=== PATIENT | female | born 2000 | race Caucasian/White ===

== ENCOUNTER 2023-06-03 02:14 | Day surgery (SDC) | payer BC, SELFPAY ==
[2023-05-31 10:49] VITALS: BMI 22.7
--- NOTE | 2023-05-31 10:52 | PC.NURSE ---
Report to the Outpatient Waiting Room, entrance under the green pavilion located off [facility], at time 0730 on date 06/03/23. Planned Procedure Time: 0930. Time changes happen often and if your time is changed the preop area will call you the afternoon before. - You and your visitor will be asked to self-screen and do not enter if you have any COVID symptoms. - A mask is optional within the hospital at this time. Patients may have clear liquids (water, carbonated beverages, clear teas, apple juice) until 3 hours prior to surgery with a maximum of 20 ounces. - No food from midnight until time of surgery Take the following medications with a SIP of water the morning of surgery: VALACYCLOVIR DO NOT STOP ANY OF YOUR OTHER PRESCRIPTION MEDICATIONS PRIOR TO SURGERY ?EXCEPT THE FOLLOWING Medications to discontinue per physician: N/A Date to take last dose: N/A Please no make-up, nail malagasy, hairspray, perfume, deodorant, or body powder the day of surgery. No jewelry (including any body piercings) or valuables the day of surgery, leave them at home. Please take a shower or bath the night before, or the morning of, surgery with an antibacterial soap. Wear comfortable, loose fitting clothing. - Jewelry must be removed prior to entering the operating room. Rings and piercings that are not removed may be cut off. - The hospital will not accept responsibility for valuables. - Please leave all valuables, including medications, at home the day of surgery. If you are going home after surgery, a licensed transport driver must drive you home. - NO public transportation without another adult if you receive anesthesia. - We recommend that an adult stay with you for 24 hours following discharge. - We also recommend that you do not drive, make important decision, drink alcoholic beverages, or take any drugs that were not prescribed by your health care provider for at least 24 hours after your discharge time. Follow any additional instructions given to you from your surgeon. If you or anyone in your household have experienced Covid symptoms in the past week, please notify your surgeon or the nurse liaison at the phone number below for possible testing. Telephone instructions given to PT - MARQUEZ and asked if any additional questions and then verbalized understanding. Patient advised to call surgeon office or pre surgery nurse liaison [phone] if any additional questions.
--- NOTE | 2023-06-01 06:43 | PM.IMHP ---
H&P: HPI History of Present Illness Date/Time: 06/01/23 06:43 Chief Complaint: 1st trimester missed A/B Narrative: 22-year-old 0 admitted in the 1st trimester for suction dilatation curettage secondary to failed . Serial ultrasounds show no growth of the fetus. Risks and benefits of suction D and C reviewed in great detail [facility] Social History Social History Smoking status: Never smoker Alcohol intake: never Substance use: never Substance use type: does not use Living arrangements: alone Spiritual care concerns: No Meds Home Medications and Allergies Home Medications Medication Instructions Recorded Confirmed Type valacyclovir 500 mg tablet 500 mg PO DAILY 05/31/23 05/31/23 History Allergies Allergy/AdvReac Type Severity Reaction Status Date / Time amoxicillin Allergy Hives Verified 05/31/23 10:49 Exam Const: General: cooperative, healthy appearing and comfortable Nutritional Appearance: average body habitus Orientation/consciousness: oriented to person, oriented to place and oriented to time Resp: Effort & Inspection: normal respiratory effort Cardio: Rate: regular rate Rhythm: regular rhythm Heart sounds: S1 normal heart sound present and S2 normal heart sound present GI: Inspection: normal to inspection : External Female Exam: normal external appearance Speculum Exam - Vagina: normal appearance of the vagina Speculum Exam - Cervix: normal appearance of the cervix Bimanual exam- vagina & uterus: enlarged Bimanual Exam- Adnexa, other: normal adnexae Assessment and Plan Assessment and plan (1) Missed : Code(s): O02.1 - Missed Status: Acute Plan suction dilatation and curettage
--- NOTE | 2023-06-03 04:43 | WPDHPUPDATE1 ---
History and Physical Update Update Date/Time: 06/03/23 04:43 History and Physical has been reviewed, including an updated exam of the patient. There are NO changes in the patient's condition. Risks, benefits, and alternatives have been discussed and questions answered. Patient agrees to proceed with procedure.
[2023-06-03 07:48] VITALS: BP 102/64; PULSE 89; RESP 16; TEMP 36.9; O2SAT 100
[2023-06-03] MEDS: ACETAMINOPHEN 500 MG TABLET 1000 MG PO (07:53)
[2023-06-03] MEDS: LACTATED RINGERS 1,000 ML 30 ML IV CONT ×2 (08:15→10:43)
[2023-06-03 09:02] LABS: Hematocrit 35.1 % (37.0-47.0); Hemoglobin 11.6 g/dL (12.0-15.0)
--- NOTE | 2023-06-03 09:26 | WPDANESEPPF ---
Anes - Initial Pre Proc Eval Procedure: Operation Date: 06/03/23 09:30 Proposed Procedures p Suction Dilation and Curettage - Mark Ordonez MD Date/Time: 06/03/23 09:26 Surgeon: Mark Ordonez MD Pre Op Diagnosis: Missed Ab Patient Data Age: 22 Gender: F Height: 1.7 m Weight: 64.6 kg Last Vital Signs Temp 98.4 F 06/03/23 07:48 Pulse 89 06/03/23 07:48 Resp 16 06/03/23 07:48 BP 102/64 06/03/23 07:48 Pulse Ox 100 06/03/23 07:48 O2 Del Method Room Air 06/03/23 07:48 Allergies Allergy/AdvReac Type Severity Reaction Status Date / Time amoxicillin Allergy Hives Verified 06/03/23 07:41 Home Medications Medication Instructions Recorded Confirmed Type valacyclovir 500 mg tablet 500 mg PO DAILY 05/31/23 05/31/23 History hydrocodone 5 mg-acetaminophen 325 1 tablet PO Q4H PRN pain #20 tabs 06/03/23 Rx mg tablet Laboratory Tests 06/03/23 08:11 Hgb 11.6 L g/dL (12.0-15.0) Hct 35.1 L % (37.0-47.0) Blood Type O Positive Antibody Screen Negative Doses of RhIg Required 0 Patient hx anesthesia problems: none Family hx anesthesia problems: none Results Review: All pre-operative results and documents have been reviewed as part of the pre-operative evaluation. [facility] Social History Social History Smoking status: Never smoker Alcohol intake: never Substance use: never Substance use type: does not use Living arrangements: alone Spiritual care concerns: No Anes - Eval Final PreProcedure Day of Procedure 06/03/23 09:26 Patient weight: normal Heart: regular rate and rhythm Lungs: clear to auscultation Airway: Mallampati scale class II Neurological: alert and oriented Last oral intake: >/= 8 hours ASA classification: I Emergent: no Anesthetic plan: proceed Anesthesia type and monitoring: general GIVS and standard monitoring Results Review: All pre-operative results and documents have been reviewed as part of the pre-operative evaluation. Informed Consent: The patient's anesthetic plan and its attendant risks and benefits were discussed with the patient/family/POA. Questions were solicited and answers provided to the satisfaction of the patient/family/POA.
[2023-06-03] MEDS: LIDOCAINE HCL 1% LOCAL INJ 20 ML VIAL 10 ML INFILTRATE (10:17)
[2023-06-03 10:20] VITALS: BP 83/47; PULSE 75; RESP 16; O2SAT 100
--- NOTE | 2023-06-03 10:26 | W.PM.PROC2 ---
Procedure Note - Detailed Date of Procedure 06/03/23 Pre-op Diagnosis Missed Ab Post-op Diagnosis Same Procedure Performed Suction dilatation curettage Surgeon Mark Ordonez MD Anesthesia MAC and Local Indications 22 female a missed 1st trimester Findings uterus retroverted sounded to 10. Products conception were. Description of Procedure Patient was prepped draped in the normal sterile fashion placed in the dorsal lithotomy position. Under excellent IV sedation weighted speculum was placed in the posterior fornix of vagina. Anterior lip of the cervix grasped with a single-tooth tenaculum. 2.5cc 1% xylocaine anesthesia placed at 2, 4, 8, and 10:00 a.m. of the cervix. Uterus was retroverted and sounded to 10cm. Serial dilatation with fragmented dilators performed. This was followed by passage of the 10. Cured suction curette. Moderate amount of tissue was removed. When a good grating sound was heard the instrument withdrawn. The the weighted speculum was and the patient was awakened. Blood loss was estimated 50cc. All sponge, needle, instrument counts were correct. She did not require RhoGAM as she is Rh positive Estimated Blood Loss 50 Drains No Packing No Pathology Yes Complications No immediate complications Condition Stable Disposition PACU
--- NOTE | 2023-06-03 10:49 | SUR.PHASEII ---
PATIENT CRYING; FAMILY NEXT TO HER, COMFORTING HER.
[2023-06-03 10:50] VITALS: BP 106/57; PULSE 104; RESP 16; O2SAT 100
[2023-06-03 11:20] VITALS: BP 105/68; PULSE 91; RESP 16
== END 2023-06-03 11:50 | disposition home or self-care (01) ==
PROVIDERS: PCP Nurse Practitioner; Visit Provider Obstetrics & Gynecology
PROC: (CPT 59820; principal; 2023-06-03 09:30)
DX: O02.1 Missed abortion (principal)
CPT/HCPCS: 59820; 36415; 85014; 85018; 85461; 86850; 86900; 86901; 88305; A9270; J1100; J2250; J2405; J2704; J3010; J7120

== ENCOUNTER 2023-10-14 01:52 | Day surgery (SDC) | payer BC, SELFPAY ==
[2023-10-11 14:22] VITALS: BMI 21.9
--- NOTE | 2023-10-11 14:38 | PC.NURSE ---
Report to the Outpatient Waiting Room, entrance under the green pavilion located off [facility], at 1300 on 10/14/23. Planned Procedure Time 1500. Time changes happen often and if your time is changed the preop area will call you the afternoon before. - You and your visitor will be asked to self-screen and do not enter if you have any COVID symptoms. - A mask is optional within the hospital at this time. Patients may have clear liquids (water, carbonated beverages, clear teas, apple juice) until 3 hours prior to surgery with a maximum of 20 ounces. - No food from midnight until time of surgery Take the following medications with a SIP of water the morning of surgery: pain medication if needed DO NOT STOP ANY OF YOUR OTHER PRESCRIPTION MEDICATIONS PRIOR TO SURGERY ?EXCEPT THE FOLLOWING Medications to discontinue per physician Date to take last dose Please no make-up, nail citizen of [place], hairspray, perfume, deodorant, or body powder the day of surgery. No jewelry (including any body piercings) or valuables the day of surgery, leave them at home. Please take a shower or bath the night before, or the morning of, surgery with an antibacterial soap. Wear comfortable, loose fitting clothing. - Jewelry must be removed prior to entering the operating room. Rings and piercings that are not removed may be cut off. - The hospital will not accept responsibility for valuables. - Please leave all valuables, including medications, at home the day of surgery. If you are going home after surgery, a licensed highway truck driver must drive you home. - NO public transportation without another adult if you receive anesthesia. - We recommend that an adult stay with you for 24 hours following discharge. - We also recommend that you do not drive, make important decision, drink alcoholic beverages, or take any drugs that were not prescribed by your health care provider for at least 24 hours after your discharge time. Follow any additional instructions given to you from your surgeon. If you or anyone in your household have experienced Covid symptoms in the past week, please notify your surgeon or the nurse liaison at the phone number below for possible testing. Telephone instructions given to patient and asked if any additional questions and then verbalized understanding. Patient advised to call surgeon office or pre surgery nurse liaison [phone] if any additional questions.
--- NOTE | 2023-10-12 06:49 | PM.IMHP ---
H&P: HPI History of Present Illness Date/Time: 10/12/23 06:49 Chief Complaint: missed A/B first-trimester Narrative: 23-year-old 2 para 0 at about 10 weeks of gestation for suction dilatation curettage secondary to missed A/B. Ultrasound proved no growth and demise. She was off a little watchful waiting versus suction D&C. Then opted for the latter. Risks and benefits reviewed in full. She would like to have chromosomes of the contents sent as well [facility] Social History Social History Smoking status: Never smoker Second hand tobacco smoke exposure: Yes (daily) Alcohol intake: former Substance use: never Substance use type: does not use Living arrangements: alone Spiritual care concerns: No Meds Home Medications and Allergies Home Medications Medication Instructions Recorded Confirmed Type valacyclovir 500 mg tablet 500 mg PO DAILY 05/31/23 10/11/23 History hydrocodone 5 mg-acetaminophen 325 1 tablet PO Q4H PRN pain #20 tabs 06/03/23 10/11/23 Rx mg tablet Allergies Allergy/AdvReac Type Severity Reaction Status Date / Time fentanyl Allergy Intermediate hypotension Verified 10/11/23 14:22 /hallucinat ions midazolam [From Versed] Allergy Intermediate hypotension Verified 10/11/23 14:22 /hallucinat ions amoxicillin Allergy Unknown Hives Verified 10/11/23 14:22 Exam Const: General: cooperative, healthy appearing and comfortable Nutritional Appearance: average body habitus Orientation/consciousness: oriented to person, oriented to place and oriented to time Resp: Effort & Inspection: normal respiratory effort Cardio: Rate: regular rate Rhythm: regular rhythm Heart sounds: S1 normal heart sound present and S2 normal heart sound present GI: Inspection: normal to inspection : External Female Exam: normal external appearance Speculum Exam - Vagina: normal appearance of the vagina Speculum Exam - Cervix: normal appearance of the cervix Bimanual exam- vagina & uterus: enlarged Bimanual Exam- Adnexa, other: normal adnexae Assessment and Plan Assessment and plan (1) Missed : Code(s): O02.1 - Missed Status: Acute Assessment and Plan: suction dilatation and curettage
--- NOTE | 2023-10-14 01:28 | WPDHPUPDATE1 ---
History and Physical Update Update Date/Time: 10/14/23 01:28 History and Physical has been reviewed, including an updated exam of the patient. There are NO changes in the patient's condition. Risks, benefits, and alternatives have been discussed and questions answered. Patient agrees to proceed with procedure.
--- NOTE | 2023-10-14 12:46 | SUR.PREOP ---
DR NIETO WAVED H+H AND ALSO WAVED RHOGAM PT IS O+.
[2023-10-14 13:15] VITALS: BP 108/72; PULSE 93; RESP 14; TEMP 37.3; O2SAT 100
[2023-10-14] MEDS: LACTATED RINGERS 1,000 ML 30 ML IV CONT (13:15)
[2023-10-14] MEDS: ACETAMINOPHEN 500 MG TABLET 1000 MG PO (13:15)
--- NOTE | 2023-10-14 13:22 | P.PNAN_ITS ---
Anes - Initial Pre Proc Eval Procedure: Operation Date: 10/14/23 13:00 Proposed Procedures p Suction Dilation and Curettage - Mark Ordonez MD Date/Time: 10/14/23 13:22 Surgeon: Mark Orodnez MD Pre Op Diagnosis: Missed Ab Patient Data Age: 23 Gender: F Height: 1.7 m Weight: 63.5 kg Allergies Allergy/AdvReac Type Severity Reaction Status Date / Time fentanyl Allergy Intermediate hypotension Verified 10/11/23 14:22 /hallucinat ions midazolam [From Versed] Allergy Intermediate hypotension Verified 10/11/23 14:22 /hallucinat ions amoxicillin Allergy Unknown Hives Verified 10/11/23 14:22 Home Medications Medication Instructions Recorded Confirmed Type valacyclovir 500 mg tablet 500 mg PO DAILY 05/31/23 10/11/23 History hydrocodone 5 mg-acetaminophen 325 1 tablet PO Q4H PRN pain #20 tabs 06/03/23 10/11/23 Rx mg tablet hydrocodone 5 mg-acetaminophen 325 1 tablet PO Q4H PRN pain #14 tabs 10/14/23 Rx mg tablet Patient hx anesthesia problems: none Family hx anesthesia problems: none Results Review: All pre-operative results and documents have been reviewed as part of the pre- operative evaluation. [facility] Social History Social History Smoking status: Never smoker Second hand tobacco smoke exposure: Yes (daily) Alcohol intake: former Substance use: never Substance use type: does not use Living arrangements: alone Spiritual care concerns: No Anes - Eval Final PreProcedure Day of Procedure 10/14/23 13:22 Patient weight: normal Heart: regular rate and rhythm Lungs: clear to auscultation Airway: Mallampati scale class II Neurological: alert and oriented Last oral intake: >/= 8 hours ASA classification: II Emergent: no Anesthetic plan: proceed Anesthesia type and monitoring: general GIVS and standard monitoring Results Review: All pre-operative results and documents have been reviewed as part of the pre- operative evaluation. Informed Consent: The patient's anesthetic plan and its attendant risks and benefits were discussed with the patient/family/POA. Questions were solicited and answers provided to the satisfaction of the patient/family/POA.
[2023-10-14] MEDS: LIDOCAINE HCL 1% LOCAL INJ 10 ML VIAL INFILTRATE (13:36)
[2023-10-14 13:45] VITALS: BP 102/58; PULSE 94; RESP 16; O2SAT 100
--- NOTE | 2023-10-14 13:45 | P.OP_ITS ---
Procedure Note - Detailed Date of Procedure 10/14/23 Pre-op Diagnosis Missed Ab Post-op Diagnosis Same Procedure Performed Suction dilatation curettage Surgeon Mark Ordonez MD Anesthesia MAC and Local Indications 23-year-old female with her 2nd miscarriage proven by imaging Findings uterus sounded to 10cm. Tissue consistent with products of conception Description of Procedure the patient was prepped draped in the normal sterile fashion placed in the dorsal lithotomy position. Under excellent IV sedation weighted speculum placed in posterior fornix vagina. Anterior lip of the cervix grasped with a single- tooth tenaculum. 2.5cc 1% xylocaine anesthesia distributed at 2, 4, 8, 10:00 a.m. of the cervix. Uterus sounded to 10cm. Serial dilatation with fragmented dilators performed followed by passage of the 10. Suction curette. A moderate to large amount of tissue was removed. When a good grating sound was heard the instruments withdrawn the specimen was sent as a fresh specimen for chromosomes. All sponge, needle, instrument counts were correct. Blood loss was estimated 25cc Estimated Blood Loss 25 Drains No Packing No Pathology Yes Complications No immediate complications Condition Stable Disposition PACU
--- NOTE | 2023-10-14 13:50 | SUR.PHASEII ---
MD Rosa Ordonez contacted - pt blood type O positive and does not need Rhogam.
--- NOTE | 2023-10-14 14:01 | SUR.OPER ---
Specimen sent for genetic studies. Given to Aracelis PCT. Received in lab by Aileen.
[2023-10-14 14:08] VITALS: BP 101/65; PULSE 82; RESP 16; O2SAT 100
[2023-10-14 14:30] VITALS: BP 107/68; PULSE 78; RESP 16; O2SAT 100
== END 2023-10-14 14:56 | disposition home or self-care (01) ==
PROVIDERS: PCP Nurse Practitioner; Visit Provider Obstetrics & Gynecology
PROC: (CPT 59820; principal; 2023-10-14 13:00)
DX: O02.1 Missed abortion (principal); Z3A.10 10 weeks gestation of pregnancy
CPT/HCPCS: 59820; 88264; 88305; A9270; J2405; J2704; J7120

== ENCOUNTER 2024-11-07 11:54 | Outpatient (CLI) | payer BC, SELFPAY ==
[2024-11-07 12:14] LABS: Hematocrit 34.9 % (37.0-47.0); Hemoglobin 11.2 g/dL (12.0-15.0); Mean Corpuscular HGB Conc 32.1 g/dl (32-36); Mean Corpuscular Hemoglobin 29.0 pg (26-34); Mean Corpuscular Volume 90.4 fl (80-100); Platelet Count Result 223 k/mm3 (150-375); Red Blood Count 3.86 M/mm3 (4.2-5.4); White Blood Count 11.5 K/mm3 (4.5-10.0)
[2024-11-07 13:03] LABS: Syphilis IgG/IgM Antibody Non-Reactive (Nonreactive)
--- NOTE | 2024-11-09 06:36 | WPDHPUPDATE1 ---
History and Physical Update Update Date/Time: 11/09/24 06:36 History and Physical has been reviewed, including an updated exam of the patient. There are NO changes in the patient's condition. Risks, benefits, and alternatives have been discussed and questions answered. Patient agrees to proceed with procedure.
== END 2024-11-07 11:55 | disposition home or self-care (01) ==
LOC: ANHLAB 11:56
PROVIDERS: PCP Nurse Practitioner; Visit Provider Obstetrics & Gynecology
DX: Z34.93 Encounter for supervision of normal pregnancy, unspecified, third trimester (principal); Z3A.00 Weeks of gestation of pregnancy not specified
CPT/HCPCS: 36415; 85027; 86593; 86850; 86900; 86901

== ENCOUNTER 2024-11-09 09:52 | Inpatient (IN) | payer BC, SELFPAY ==
--- NOTE | 2024-11-06 07:37 | HP_ITS ---
This report was moved to the correct visit on 11/14/2024. The original report was signed by Mark Carcamo MD on 11/06/24 0737. H&P: HPI History of Present Illness Date/Time: 11/06/24 07:34 Chief Complaint: In term with breech presentation Narrative: Is a 24-year-old 3 para 0 whose last menstrual period was 02/10/2024, EDC is 11/13/2024 confirmed by 10 week ultrasound presents at 39 weeks gestation for primary low-transverse section. was uncomplicated left ovaries in. She has had persistent breech. 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 Risks and benefits of reviewed in great detail Review of Systems Review of Systems: All systems reviewed & are unremarkable except as noted in HPI and below PMFSH Family History Family History Mother Hypertension Asthma Chronic obstructive pulmonary diseaseOther Cancer Cirrhosis Social History Social History Smoking status: Never smoker Second hand tobacco smoke exposure: Yes (daily) Alcohol intake: former Substance use: never Substance use type: does not use Living arrangements: alone Spiritual care concerns: No Meds Home Medications and Allergies Home Medications ?Medication ?Instructions ?Recorded ?Confirmed ?Type ferrous sulfate 325 mg (65 mg 325 mg PO DAILY 10/17/24 10/17/24 Histor y iron) tablet (Feosol) vit no.95-ferrous 1 tablet PO DAILY 10/17/24 10/17/24 Hist ory fumarate 28 mg-folic acid 800 mcg tablet () vit no.95-ferrous 1 tablet PO DAILY 10/17/24 10/17/24 Hist ory fumarate 28 mg-folic acid 800 mcg tablet () Allergies Allergy/AdvReac Type Severity Reaction Status Date / Time fentanyl Allergy Intermediate hypotension Verified 10/14/23 13:41 /hallucinat ions midazolam (From Versed) Allergy Intermediate hypotension Verified 10/14/23 13:41 /hallucinat ions amoxicillin Allergy Unknown Hives Verified 10/14/23 13:41 Exam Const: General: cooperative, healthy appearing, comfortable and average body habitus Orientation/consciousness: oriented to person, oriented to place and oriented to time HENMT: Head: normal to inspection Resp: Effort & Inspection: normal respiratory effort Cardio: Rate: regular rate Rhythm: regular rhythm Heart sounds: S1 normal heart sound present and S2 normal heart sound present GI: Inspection: normal to inspection (Soft gravid uterus) : External Female Exam: normal external appearance Speculum Exam - Vagina: normal appearance of the vagina Speculum Exam - Cervix: normal appearance of the cervix Assessment and Plan Assessment and plan (1) Term : Code(s): Z34.90 - Encounter for supervision of normal , unspecified, unspecified trimester Status: Acute (2) Breech presentation: Code(s): O32.1XX0 - Maternal care for breech presentation, not applicable or unspecified Status: Acute Plan Proceed with primary low-transverse section Please be advised this is a medical document. It is intended for [id number] communication. It is written in medical language and may contain unfamiliar abbreviations or verbiage. Medical documents are intended to carry relevant information, facts as evident, and the clinical opinion of the practitioner at the time of the encounter. This report may have been done utilizing a voice recognition system. Attempts have been made to correct errors. However, there may be uncorrected grammatical, spelling, and recognition errors present. The file time of this note does not necessarily represent the time the patient was seen. Report Initialized date/time: Mark Carcamo MD 11/06/2437 Electronically signed by: Mark Carcamo MD 11/06/24 0737
[2024-11-09] VITALS (49 sets, daily range): BP systolic 77–140; BP diastolic 50–95; PULSE 56–92; RESP 16–20; TEMP 36.4–37.4; O2SAT 96–100; BMI 32.8
--- NOTE | 2024-11-09 10:31 | LDADM ---
This patient, Angella Reyna, was admitted to Labor/Delivery/Recovery 120 on 11/09/24 at 09:52. Plans for section, pain management and were discussed with patient. Patient/family oriented to hospital policies and general routines including ID bracelet, bed and alarms, visiting hours, pain management, procedures, bathroom and other care routines, personal items, smoking policy, room service/diet and guest tray routines, security routines, and visiting hours. Patient/Family are encouraged to report perceived risks to care and to ask questions if they do not understand what they are told or what they should do. See OBIX for further documentation.
[2024-11-09] MEDS: ACETAMINOPHEN 500 MG TABLET 1000 MG PO ×3 (10:42→23:10)
[2024-11-09] MEDS: ONDANSETRON INJ 4 MG/2 ML VIAL IV PUSH ×2 (10:43→13:28)
[2024-11-09] MEDS: LACTATED RINGERS 1,000 ML 125 ML IV CONT (10:43)
[2024-11-09] MEDS: FAMOTIDINE 20 MG/2 ML VIAL IV PUSH (10:43)
[2024-11-09] MEDS: ceFAZolin 2 GM in SODIUM CHLORIDE 0.9% IV 50 ML 100 ML IVPB (10:44)
--- OUTSIDE RECORDS SUMMARY | 2024-11-09 10:44 | XMS_ITS | Encounter Summary ---
Author Organization [facility] Address [facility] [place] [address] Care Team Providers Care Tank Builder And Erector Name Role Phone Rui Lopez MD Primary Care Provider [phone] Bryon Pollock MD Primary Care Provider [phone] Eladia Hernandez Primary Care Provider [phone] Vannessa Fleming MD Primary Care Provider [phone] Encounter Details Date Type Department Care Team (Late st Contact Info) Description 08/05/2018 Abstract [facility]FL CONVERSION [address] [place] [id number] , Generic ConversionMD Social History Tobacco Use Types Packs/Day Years Used Date Smoking Tobacco: Never Assessed Comments Unknown Sex and Gender Information Value Date Recorded Sex Assigned at Female 05/19/2023 1:11 PM CDT Legal 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 Gender Identity Female 05/19/2023 1:11 PM CDT Sexual Orientation Not on file documented as of this encounter Plan of Treatment Not on file documented as of this encounter Visit Diagnoses Not on filedocumented in this encounter Care Teams Tank Builder And Erector Relationship Specialty Start Date End Date Rui Lopez MD [address] [place] [id number] PCP - General FAMILY PRACTICE 07/25/19 10/04/21 [place] [id number] PCP - General FAMILY PRACTICE 10/05/21 03/05/24 Eladia Hernandez APNP [address] [place] [address] PCP - General NURSE PRACTITIONER 03/06/24 08/16/24 Vannessa Fleming MD [address] [place] [address] PCP - General FAMILY PRACTICE 08/17/24 documented as of this encounter
--- OUTSIDE RECORDS SUMMARY | 2024-11-09 10:44 | XMS_ITS | Clinical Summary ---
Author Organization [facility] Address Formerly [facility] [place] [address] Care Team Providers Care Rn Immunology Name Role Phone Vannessa Fleming MD Primary Care Provider [phone] Allergies Active Allergy Reactions Criticality Noted Date Comments Amoxicillin Unknown 09/08/2017 Medications medroxyPROGESTER one 150 MG/ML injection Inject 150 mg into the muscle every 3 (three) months. 06/27/2017 Active Active Problems Problem Noted Date Diagnosed Date Closed displaced fracture of neck of fifth metac arpal bone 09/04/2019 Closed displaced fracture of neck of fifth metacarpal bone of right hand, initial encounter 07/25/2019 Encounters Date Type Department Care Team Description 08/17/2024 4:18 PM CDT - 08/17/2024 11:59 PM CDT Hospital Encounter [facility] [address] [place] [address] Mark Carcamo MD Discharge Disposition: Home or Self Care (Routine Discharge) 08/17/2024 Orders Only [facility] [address] [place] [address] Mark Carcamo MD 08/17/2024 Travel from Last 3 Months Family History Medical History Relation Comments No Known Problems Brother Mental Health Father Heart Disease Maternal Grandfather Liver Disease Maternal Grandfather Asthma Mother Hypertension Mother No Known Problems Paternal Grandfather No Known Problems Paternal Grandmother Relation Status Comments Brother Alive Father Alive Maternal Grandfather Maternal Grandmother Alive Mother Alive Paternal Grandfather Alive Paternal Grandmother Alive Social History Tobacco Use Types Packs/Day Years Used Date Smoking Tobacco: Never Smokeless Tobacco: Never Alcohol Use Standard Drinks/Week Comments Not Currently 0 (1 standard drink = 0.6 oz pur e alcohol) Comments No Sex and Gender Information Value Date Recorded Sex Assigned at Female 05/19/2023 1:11 PM CDT 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 Gender Identity Female 05/19/2023 1:11 PM CDT Sexual Orientation Not on file Last Filed Vital Signs Vital Sign Reading Time Taken Comments Blood Pressure 105/70 09/18/2019 4:54 PM CDT Pulse 87 09/18/2019 4:54 PM CDT Temperature 36.3 C (97.4 F) 09/18/2019 4:54 PM CDT Respiratory Rate 18 09/18/2019 4:54 PM CDT Oxygen Saturation 98% 09/18/2019 4:54 PM CDT Inhaled Oxygen Concentration - - Weight 60.8 kg (134 lb) 09/25/2019 10:27 AM CDT Height 165.1 cm (5' 5) 09/25/2019 10:27 AM CDT Body Mass Index 22.3 09/25/2019 10:27 AM CDT Plan of Treatment Health Maintenance Due Date Last Done Comments Cervical Cancer Screening Pap Smear (Age 21 to 29) Every 3 Years 2000 Cervical Cancer Screening 2000 Annual Physical 07/01/2003 DTaP, Tdap and Td Vaccines (6 - Tdap) 07/01/2011 10/07/2005, 10/04/2001, 01/16/2001, Additional history exists Hepatitis C 2018 Hepatitis B Vaccines (1 of 3 - 19+ 3-dose series) 07/01/2019 COVID-19 Vaccine ( season) 2024 HPV Vaccines Completed 03/06/2015, 09/28, 10/04/2011 Meningococcal Vaccine Completed 09/13/2017 Meningococcal B Vaccine Aged Out No l onger eligible based on patient's age to complete this topic Pneumococcal Vaccine: Pediatrics (0 to 5 Years) and At-Risk Patients (6 to 49 Years) Aged Out No longer eligible based on patient's age to complete this topic RSV Immunizations Under 20 Months Aged Out No longer eligible based on patient's age to complete this topic Procedures Procedure Name Priority Date/Time Associated Diagnosis Comments SYPHILIS AB (DIAGNOSTIC) WITH CASCADING REFLEX Routine 08/17/2024 4:45 PM CDT Screening for iron deficiency anemia Screening for diabetes mellitus Vitamin D deficiency Encounter for supervision of other normal in third trimester ([facility]/HCC) HIV 1 ANTIGEN(S), WITH HIV-1 AND HIV-2 ANTIBODIES Routine 08/17/2024 4:45 PM CDT Screening for iron deficiency anemia Screening for diabetes mellitus Vitamin D deficiency Encounter for supervision of other normal in third trimester ([facility]) VITAMIN D, 25 OH Routine 08/17/2024 4:45 PM CDT Screening for iron deficiency anemia Screening for diabetes mellitus Vitamin D deficiency Encounter for supervision of other normal in third trimester ([facility]) HEMOGLOBIN AND HEMATOCRIT Routine 08/17/2024 4:45 PM CDT Screening for iron deficiency anemia Screening for diabetes mellitus Vitamin D deficiency Encounter for supervision of other normal in third trimester ([facility]) GLUCOSE, GESTATIONAL SCREEN Routine 08/17/2024 4:45 PM CDT Screening for iron deficiency anemia Screening for diabetes mellitus Vitamin D deficiency Encounter for supervision of other normal in third trimester ([facility]) from Last 3 Months Results * SYPHILIS AB (RPR) DIAGNOSTIC WITH CASCADING REFLEX (08/17/2024 4:45 PM CDT) SYPHILIS IGG IGM AB NON-REACTI VE NON-REACTI VE 08/18/2024 11:13 AM CDT [facility] Comment: No serologic evidence of syphilis. No follow-up necessary unless clinically indicated. 08/17/2024 4:45 PM CDT us Mark Ordonez MD LABORATORY Final Resu lt [facility] [address] [place] [address], [phone] * GLUCOSE TOLERANCE 1 HR GESTATIONAL SCREEN (08/17/2024 4:45 PM CDT) GLUCOSE 1 HOUR POST DOSE 118 70 - 129 MG/DL 08/17/2024 5:01 PM CDT [facility] Comment: IF PLASMA GLUCOSE IS GREATER THAN 129 MG/DL, PROCEED TO 100G 3 HOUR ORAL GLUCOSE TOLERANCE TEST. 08/17/2024 4:45 PM CDT us Mark Ordonez MD LABORATORY Final Resu lt Performing Organization Address City/[facility]/ZIP Co de Phone Number [facility] [address] [place] [address], [place] [phone] * HIV 1 ANTIGEN(S), WITH HIV-1 AND HIV-2 ANTIBODIES (08/17/2024 4:45 PM CDT) HIV 1/2 AB+ HIV1 P24 AG NON-REACTI VE NON-REACTI VE 08/18/2024 11:43 AM CDT [facility] Comment:HIV 1 p24 Ag and HIV 1/ HIV 2 Ab not detected. 08/17/2024 4:45 PM CDT Mark Ordonez MD LABORATORY Final Resu lt Performing Organization Address City/[facility]/ZIP Co de Phone Number [facility] [address] [place] [address], [place] [phone] * (ABNORMAL) HEMOGLOBIN AND HEMATOCRIT (08/17/2024 4:45 PM CDT) HGB 9.7(L) 12.0 - 16.0 G/DL 08/17/2024 4:51 PM CDT [facility] HCT 29.7(L) 36.0 - 47.0 % 08/17/2024 4:51 PM CDT [facility] 08/17/2024 4:45 PM CDT us Mark Ordonez MD LABORATORY Final Resu lt Performing Organization Address City/[facility] Co de Phone Number [facility] [address] [place] [address], * (ABNORMAL) VITAMIN D, 25 OH (08/17/2024 4:45 PM CDT) VITAMIN D 25 HYDROXY TOTAL S/P/B 18.5(L) 20.0 - 50.0 NG/ML 08/18/2024 11:03 AM CDT [facility] Comment: <10 ng/mL (Severe deficiency) 10 TO 19 ng/mL (Mild to Moderate deficiency) 20 TO 50 ng/mL (Optimum levels) 51 TO 80 ng/mL (Increased risk of hypercalciuria) >80 ng/mL (Toxicity possible) 08/17/2024 4:45 PM CDT Mark Ordonez MD LABORATORY Final Resu lt Performing Organization Address City/[facility] Co de Phone Number [facility] [address] [place] [address], [phone] from Last 3 Months Insurance [facility] Care Teams Rn Immunology Relationship Specialty Start Date End Date Vannessa Fleming MD [address] [place] [address] PCP - General FAMILY PRACTICE 08/17/24
--- NOTE | 2024-11-09 11:52 | W.PM.OBCSD ---
OB - Delivery Note Procedure Delivery date: 11/09/24 Pre-op diagnosis: Breech Presentation Post-op Diagnosis: Same Induction method: None Delivery monitor: External FHT Prior to decision for section, ACOG/SMFM labor guidelines were considered and discussed with the patient and staff. Decision made to proceed with the section.: Yes Procedure Performed: Primary Surgeon: Mark Ordonez MD Anesthesia type: Spinal Description of Procedure/Findings: Patient was admitted for primary low-transverse section at 39 weeks gestation secondary to breech presentation after reaffirming breech presentation via ultrasound bedside, she was taken back prepped draped sterile fashion placed in the supine position. Under excellent spinal anesthetic the abdomen is entered through a Pfannenstiel incision progressive layers the fascia. Fascia was incised midline cure number a fashion bilaterally. Underlying muscles were sharply dissected. Parietal peritoneum a by Nury clamps and by sharp dissection this was carried superiorly and inferiorly to the dome bladder. Bladder blade was placed. Bladder flap was formed. Bladder blade returned. A low-transverse incision made the sacrum delivered to maternal left legs were delivered medially the arm swept medially and the head delivered flexed position and nuchal cord was noted x3 and relieved. Cord clamped x2 and cut infant passed off the table with an excellent cry. Placenta delivered intact manually after drawing blood. Uterus delivered from the abdomen wrapped in a moist towel. After assuring no membranes or debris remained in the uterus, the uterus was closed continuous running locking 0 Vicryl from lateral edge to lateral edge. Second imbricating running locking 0 Vicryl was then placed from lateral edge to lateral edge. Hemostasis was assured. Ovaries and tubes appeared within normal limits the hysterotomy incision was intact and the uterus returned the abdomen. Laps removed and accounted for. The uterine incision inspected 1 last time noted be hemostatic. The fascia closed with continuous running 0 Vicryl from lateral edge to lateral edge. Irrigation subcutaneous layer and the skin closed with 4 Monocryl glue QBL 480cc. All sponge, needle, instrument counts were correct. Mom and baby doing fine at the time of dictation Specimen: No Estimated Blood Loss: 480 Drains: No Packing: No Pathology: None sent Complications: No immediate complications Condition: Stable Disposition: PACU Baby Date of : 11/09/24 Time of : 11:33 Gestational Age by Date: 39 gender: Female Weight (pounds): 8 Weight (ounces): 7 position: Right Sacrum Anterior Placenta delivery description: Manual Removal Cord Vessel Description: 3 Vessels, Nuchal Cord, Loose and Reduced
--- NOTE | 2024-11-09 11:56 | P.DS_ITS ---
DS: Admitting Diagnosis Discharge Date 11/11/2024 Admitting Diagnosis Term /breech presentation DS: Discharge Diagnosis Discharge Diagnosis (1) Term : Code(s): Z34.90 - Encounter for supervision of normal , unspecified, unspecified trimester Status: Acute (2) Breech presentation: Code(s): O32.1XX0 - Maternal care for breech presentation, not applicable or unspecified Status: Acute DS: Summary Hospital Course Reason for hospitalization: Patient was admitted for repeat primary low-transverse section on 11/09/2024. She underwent an unremarkable section Hospital Course: His hospital course unremarkable. She remained afebrile. She was up, voiding without difficulty, eating regular diet, ambulating, and generally without complaints. The Time Spent with Patient Time attestation: Total time spent providing and/or coordinating discharge services: Exam Const: General: cooperative, healthy appearing and comfortable Nutritional Appearance: average body habitus Orientation/consciousness: oriented to person, oriented to place and oriented to time HENMT: Head: normal to inspection Resp: Effort & Inspection: normal respiratory effort Cardio: Rate: regular rate Rhythm: regular rhythm Heart sounds: S1 normal heart sound present and S2 normal heart sound present GI: Inspection: normal to inspection and incision (Wound is clean dry and intact) Discharge Plan Discharge Attending physician on discharge: Mark Carcamo Discharging Clinician: Mark Carcamo Patient Disposition: Home Activity: may shower, no straining and pelvic rest Diet: heart healthy Wound Care Instructions: follow printed instructions Patient Instructions: Antibiotic Form Patient Language: Croatian Stand Alone Forms: General Discharge Information Follow-up/Referrals: Mark Carcamo MD [Physician, RESPIRATORY CLINICIAN] Discharge Medications: New oxycodone-acetaminophen [Percocet] 5-325 mg tablet 1 tablet PO Q4H PRN (Reason: pain) Qty: 20 0RF Continued PNV no.95-ferrous fumarate-FA [] 28 mg iron- 800 mcg tablet 1 tablet PO DAILY PNV no.95-ferrous fumarate-FA [] 28 mg iron- 800 mcg tablet 1 tablet PO DAILY ferrous sulfate [Feosol] 325 mg (65 mg iron) tablet 325 mg PO DAILY Discontinued hydrocodone-acetaminophen 5-325 mg tablet 1 tablet PO Q4H PRN (Reason: pain) Qty: 20 0RF Date of admission: 11/09/24 09:52 Primary Care Provider: UNKNOWN,DOCTOR Admitting Provider: Mark Carcamo Attending physician on admission: Mark Carcamo Condition: Stable
[2024-11-09] MEDS: OXYTOCIN 30 UNITS/NS 500 ML 30 UNITS/500 ML BAG 125 UNITS IV CONT (12:14)
[2024-11-09] MEDS: LIDOCAINE 5% PATCH 1 PATCH TRANSDERM (13:27)
--- NOTE | 2024-11-09 14:26 | PC.NURSE ---
Patient transferred to post room #286 via stretcher. Support person present. Oriented to unit, room, information board, rooming in, admission packet and security measures. Patient verbalizes understanding.
--- NOTE | 2024-11-09 15:00 | PC.NURSE ---
Patient was recently admitted to the unit and it is time for baby to eat. The primary RN showed mom how to hold baby in cross cradle and when I entered the room, baby was latched to the left breast in cradle. Baby was suckling vigorous and mom denied any nipple pain. Mom intends to breast and bottle feed and she asked if giving a bottle will affect so she is educated on the risks. She is also offered a breast pump to use if she decides to skip any breast feedings and give a bottle. Mom will let us know if she wants to pump and/or supplement. Primary RN updated.
[2024-11-09] MEDS: SIMETHICONE 80 MG TAB.CHEW PO (15:56)
[2024-11-09] MEDS: SCOPOLAMINE 1 MG PATCH 1 PATCH TRANSDERM (15:56)
[2024-11-09] MEDS: DOCUSATE SODIUM 100 MG CAPSULE PO (16:43)
[2024-11-09] MEDS: DEXTROSE 5%/0.45% SOD CHL 1,000 ML 125 ML IV CONT (16:44)
[2024-11-09] MEDS: KETOROLAC 15 MG/ML VIAL (*BKC) IV PUSH ×2 (16:44→23:10)
[2024-11-10] MEDS: oxyCODONE HCL (*CRX) 5 MG TAB IR PO ×2 (04:27→14:49)
[2024-11-10 05:09] LABS: Hematocrit 29.4 % (37.0-47.0); Hemoglobin 9.5 g/dL (12.0-15.0); Immature Granulocyte Percent A 1.1 % (0-0.5); Lymphocytes Absolute Auto 1.73 K/mm3 (0.9-3.2); Mean Corpuscular HGB Conc 32.3 g/dl (32-36); Mean Corpuscular Hemoglobin 29.7 pg (26-34); Mean Corpuscular Volume 91.9 fl (80-100); Nucleated Red Blood Cells Absolute Auto 0.000 K/mm3 (0.0-0.012); Nucleated Red Blood Cells Perc 0.0 % (0.0-0.2); Platelet Count Result 179 k/mm3 (150-375); Red Blood Count 3.20 M/mm3 (4.2-5.4); White Blood Count 13.4 K/mm3 (4.5-10.0)
[2024-11-10] MEDS: ACETAMINOPHEN 500 MG TABLET 1000 MG PO ×4 (05:30→23:05)
[2024-11-10] MEDS: KETOROLAC 15 MG/ML VIAL (*BKC) IV PUSH (05:30)
--- NOTE | 2024-11-10 07:09 | P.PNOB_ITS ---
OB - PN: Subj Subjective Date/time seen: 11/10/24 07:09 Patient comments: no complaints, pain well controlled, tolerating diet and flatus present [place] baby status: doing well OB - PN: Obj Data Labs 11/10/24 04:38 Labs: Laboratory Results - last 24 hr 11/10/24 04:38 WBC 13.4 H RBC 3.20 L Hgb 9.5 L Hct 29.4 L MCV 91.9 MCH 29.7 MCHC 32.3 RDW 15.5 H Plt Count 179 MPV 11.0 H Immature Gran % (Auto) 1.1 H Neut % (Auto) 75.3 H Lymph % (Auto) 12.9 L [place] % (Auto) 9.8 H Eos % (Auto) 0.7 Baso % (Auto) 0.2 Lymph # (Auto) 1.73 [place] # (Auto) 1.3 H Eos # (Auto) 0.1 Baso # (Auto) 0.0 Abs Immat Gran (auto) 0.15 H Absolute Neuts (auto) 10.1 H Absolute Nucleated RBC 0.000 Nucleated RBC % 0.0 OB - PN A/P Assessment and Plan (1) Term : Code(s): Z34.90 - Encounter for supervision of normal , unspecified, unspecified trimester Status: Acute (2) Breech presentation: Code(s): O32.1XX0 - Maternal care for breech presentation, not applicable or unspecified Status: Acute Plan routine care Time Spent With Patient Time: Total time spent is greater than 50% in coordination of care (as documented) at patient's floor/unit and/or counseling patient: Review of Systems 2 Review of Systems: All systems reviewed & are unremarkable except as noted in HPI and below Exam 2 Const: General: cooperative, healthy appearing and comfortable Nutritional Appearance: average body habitus Orientation/consciousness: oriented to person, oriented to place and oriented to time HENMT: Head: normal to inspection Resp: Effort & Inspection: normal respiratory effort Cardio: Rate: regular rate Rhythm: regular rhythm Heart sounds: S1 normal heart sound present and S2 normal heart sound present GI: Inspection: normal to inspection and incision (Wound is clean dry and intact)
[2024-11-10 07:53] VITALS: BP 94/50; PULSE 81; RESP 14; TEMP 37.2; O2SAT 98
[2024-11-10] MEDS: SIMETHICONE 80 MG TAB.CHEW PO ×3 (08:39→17:26)
[2024-11-10] MEDS: DOCUSATE SODIUM 100 MG CAPSULE PO ×2 (08:39→17:26)
[2024-11-10] MEDS: MULTIVIT/MIN/PREN/FOL AC/IRON TABLET 1 TAB PO (08:39)
[2024-11-10] MEDS: IBUPROFEN 600 MG TABLET PO ×3 (11:30→23:05)
--- NOTE | 2024-11-10 11:37 | WPDANLDPN2 ---
Anes-Prog Note L&D Date/Time: 11/10/24 11:37 Comfortable throughout: section Neuraxial method: spinal Epidural/Spinal procedure site: clean & non-tender Neuro status: Neuro function grossly intact. Cardiovascular status: normal Respiratory status: normal Airway patency: baseline Mental status: baseline Post-Op hydration status: normal Vital Signs: Last Vital Signs Temp 37.2 C 11/10/24 07:53 Pulse 81 11/10/24 07:53 Resp 14 11/10/24 07:53 BP 94/50 L 11/10/24 07:53 Pulse Ox 98 11/10/24 07:53 O2 Del Method Room Air 11/10/24 07:35 Pain score (VAS): 3 I/O: Intake & Output 11/09/24 11/10/24 11/10/24 23:59 07:59 15:59 Intake Total 300 1600 Output Total 400 500 800 Balance -100 1100 -800 Post-procedural complaints: none Patient feedback: Patient satisfied with anesthetic care.
--- NOTE | 2024-11-10 11:38 | WPDANLDNPN2 ---
Anes-Prog Note L&D-Neuraxial Date/Time: 11/10/24 11:38 Neuraxial medications: intrathecal PF morphine Opiod-related complaints: none Patient feedback: Patient satisfied with post-operative pain management.
--- NOTE | 2024-11-10 13:39 | PC.NURSE ---
Mother verbalizes she is able to independently latch with appropriate positioning and alignment. She denies any nipple discomfort and is responsively . Infant is currently meeting outcomes for weight, output, jaundice, blood sugar and feeding frequencies of 8-12 times in 24 hours. Mother declines any additional assistance or education at this time. Mother is encouraged to call for assistance if her infant doesn?t latch, pain with latching, questions or concerns. Mother voiced understanding of information shared along with the mom/baby guide for an additional resource. Reported to the Primary RN.
[2024-11-10 19:18] VITALS: BP 120/82; PULSE 75; RESP 16; TEMP 37.2; O2SAT 98
[2024-11-10] MEDS: oxyCODONE HCL (*CRX) 5 MG TAB IR 10 MG PO (19:18)
[2024-11-11] MEDS: oxyCODONE HCL (*CRX) 5 MG TAB IR 10 MG PO ×4 (01:00→19:20)
[2024-11-11] MEDS: IBUPROFEN 600 MG TABLET PO ×4 (05:00→23:00)
[2024-11-11] MEDS: ACETAMINOPHEN 500 MG TABLET 1000 MG PO ×4 (05:00→23:00)
[2024-11-11 07:30] VITALS: BP 119/80; PULSE 81; RESP 14; TEMP 36.9
[2024-11-11] MEDS: MULTIVIT/MIN/PREN/FOL AC/IRON TABLET 1 TAB PO (07:35)
[2024-11-11] MEDS: DOCUSATE SODIUM 100 MG CAPSULE PO ×2 (07:35→16:57)
[2024-11-11] MEDS: SIMETHICONE 80 MG TAB.CHEW PO ×3 (07:35→16:57)
[2024-11-11] MEDS: LIDOCAINE 5% PATCH 1 PATCH TRANSDERM (07:36)
--- NOTE | 2024-11-11 07:43 | P.PNOB_ITS ---
OB - PN: Subj Subjective Date/time seen: 11/11/24 07:43 Patient comments: no complaints, pain well controlled, tolerating diet and flatus present baby status: doing well OB - PN: Obj Data Labs 11/10/24 04:38 OB - PN A/P Assessment and Plan (1) Term : Code(s): Z34.90 - Encounter for supervision of normal , unspecified, unspecified trimester Status: Acute (2) Breech presentation: Code(s): O32.1XX0 - Maternal care for breech presentation, not applicable or unspecified Status: Acute Plan home Time Spent With Patient Time: Total time spent is greater than 50% in coordination of care (as documented) at patient's floor/unit and/or counseling patient: Review of Systems 2 Review of Systems: All systems reviewed & are unremarkable except as noted in HPI and below Exam 2 Const: General: cooperative, healthy appearing and comfortable Nutritional Appearance: average body habitus Orientation/consciousness: oriented to person, oriented to place and oriented to time HENMT: Head: normal to inspection Resp: Effort & Inspection: normal respiratory effort Cardio: Rate: regular rate Rhythm: regular rhythm Heart sounds: S1 normal heart sound present and S2 normal heart sound present GI: Inspection: normal to inspection and incision (Wound is clean dry and intact)
[2024-11-11 19:20] VITALS: BP 135/89; PULSE 82; RESP 16; TEMP 36.8; O2SAT 100
[2024-11-12] MEDS: oxyCODONE HCL (*CRX) 5 MG TAB IR 10 MG PO ×2 (01:00→07:44)
[2024-11-12] MEDS: ACETAMINOPHEN 500 MG TABLET 1000 MG PO ×2 (05:00→11:18)
[2024-11-12] MEDS: IBUPROFEN 600 MG TABLET PO ×2 (05:00→11:18)
[2024-11-12 07:30] VITALS: BP 120/85; PULSE 81; RESP 16; TEMP 36.8; O2SAT 99
[2024-11-12] MEDS: MULTIVIT/MIN/PREN/FOL AC/IRON TABLET 1 TAB PO (07:44)
[2024-11-12] MEDS: SIMETHICONE 80 MG TAB.CHEW PO ×2 (07:44→11:18)
[2024-11-12] MEDS: DOCUSATE SODIUM 100 MG CAPSULE PO (07:44)
[2024-11-12] MEDS: LIDOCAINE 5% PATCH 1 PATCH TRANSDERM (07:46)
--- NOTE | 2024-11-12 08:00 | PC.NURSE ---
Met with patient regarding nipple pain and blistering with pumping. She is using a 24mm flange and is measured at 18mm. Per the Medela and Spectra (patient has a Spectra at home) guidelines, patient should use a 24mm flange, but is supported to try the 21mm flange if too much breast is being pulled into the 24mm flange tunnel. Reviewed pump use and settings (Initiate mode) and importance of stimulating the breast every 3 hours, whether that is putting baby to breast or pumping. Patient states she would still like to latch baby sometimes and she states that she can latch independently without pain. She has not had baby to breast in the last 12 hours. Her nipples are reddened with skin intact. No blister noted on the left nipple face, patient says it 'popped'. Breast and bottle feeding plan added to infants discharge plan. Patient is encouraged to call out for a latch check and/or a flange check at the next feeding time. Primary RN updated.
[2024-11-13 11:33] VITALS: BP 118/84; PULSE 90; RESP 18; TEMP 36.9; O2SAT 100
== END 2024-11-12 13:08 | disposition home or self-care (01) | DRG 788 ==
LOC: ANHLDR 11:58 → ANHOB2 14:28
PROVIDERS: Admitting Provider Obstetrics & Gynecology; Visit Provider Obstetrics & Gynecology
PROC: 10D00Z1 Extraction of Products of Conception, Low, Open Approach (ICD-10-PCS; CPT 59514; principal; 2024-11-09 12:00)
DX: O32.1XX0 Maternal care for breech presentation, not applicable or unspecified (principal); Z37.0 Single live birth; Z3A.39 39 weeks gestation of pregnancy; O69.81X0 Labor and delivery complicated by cord around neck, without compression, not applicable or unspecified
CPT/HCPCS: 36415; 85025; J0690; A9270; J1885; J2274; J2371; J2405; J2590; J7120